=== PATIENT | male | born 1950 | race Caucasian/White ===

== ENCOUNTER → 2018-08-03 | Outpatient (CLI) | payer MEDICARE, OTHER | END | disposition home or self-care (01) | LOC: RADPV 11:00 | PROVIDERS: ATTEND Internal Medicine Cardiovascular Disease | DX: I50.1 Left ventricular failure, unspecified (principal); I51.7 Cardiomegaly | CPT/HCPCS: 93306 ==

== ENCOUNTER 2021-09-19 14:22 | Emergency (ER) | payer MEDICARE, MEDICAID ==
[~2021-09-19] VITALS: Ht 165.1 cm; Wt 77.0 kg
[2021-09-19 14:34] VITALS: BP 123/65
[2021-09-19 15:12] LABS: BASOPHILS % (AUTO) 0.4 % (0.0-2.0); EOSINOPHILS % (AUTO) 7.6 % (1.0-6.0); HEMATOCRIT 37.7 % (41-53); HEMOGLOBIN 13.1 g/dL (13.5-17.5); LYMPHOCYTES # (AUTO) 1.8 K/uL (1.0-4.8); LYMPHOCYTES % (AUTO) 17.3 % (22.0-44.0); MEAN CORPUSCULAR HEMOGLOBIN 31.7 pg (26.0-34.0); MEAN CORPUSCULAR HGB CONC 34.7 G/dL (31.0-37.0); MEAN CORPUSCULAR VOLUME 91 fL (80-100); MONOCYTES # (AUTO) 0.6 K/uL (0.1-1.0); MONOCYTES % (AUTO) 6.1 % (2.0-9.0); NEUTROPHILS # (AUTO) 7.3 K/uL (1.8-7.7); NEUTROPHILS % (AUTO) 68.6 % (40.0-70.0); PLATELET COUNT (AUTO) 312 K/uL (150-450); RED BLOOD CELL COUNT(AUTO) 4.12 MIL/uL (4.50-5.90); RED CELL DISTRIBUTION WIDTH 13.1 % (11.5-14.5)
[2021-09-19 15:22] LABS: ANION GAP 9 mmol/L (8-16); CALCIUM, TOTAL 9.2 mg/dL (8.8-10.5); CARBON DIOXIDE 30 mmol/L (22-29); CHLORIDE 102 mmol/L (98-107); CREATININE 0.89 mg/dL (0.60-1.30); GLUCOSE,RANDOM 146 mg/dL (70-110); POTASSIUM 3.6 mmol/L (3.5-5.1); SODIUM SERUM 141 mmol/L (136-145); UREA NITROGEN, BLOOD 17 mg/dL (7-18)
[2021-09-19 15:23] LABS: GLOMERULAR FILTR. RATE CALC > 60 mL/min (>60)
[2021-09-19 15:31] LABS: LACTIC ACID 3.3 mmol/L (0.4-2.0)
[2021-09-19 15:36] LABS: ALANINE AMINOTRANSFERASE 24 U/L (12-78); ALBUMIN 3.3 g/dL (3.4-5.0); ALKALINE PHOSPHATASE 98 U/L (46-116); ASPARTATE AMINOTRANSFERASE 21 U/L (15-37); BILIRUBIN,TOTAL 0.5 mg/dL (0.1-1.0); TOTAL PROTEIN, SERUM 6.8 g/dL (6.4-8.2)
[2021-09-19] MEDS ORDERED: PRED-554 PO (17:06)
[2021-09-19] MEDS: MethylPREDNISolone SOD SUCC 125 MG/2 ML VIAL IM ONE (17:29)
== END 2021-09-19 17:46 | disposition home or self-care (01) ==
LOC: EMS 14:22
DX: L51.1 Stevens-Johnson syndrome (principal); L51.9 Erythema multiforme, unspecified; L95.9 Vasculitis limited to the skin, unspecified; K14.0 Glossitis; E11.9 Type 2 diabetes mellitus without complications; I10 Essential (primary) hypertension; Z87.438 Personal history of other diseases of male genital organs; Z98.890 Other specified postprocedural states
CPT/HCPCS: 36415; 80053; 83605; 85025; 87040; 96372; 99283; J2930

== ENCOUNTER 2023-06-12 15:03 | Emergency (ER) | payer MEDICARE, MEDICAID ==
[~2023-06-12] VITALS: Ht 165.1 cm; Wt 77.3 kg
[~2023-06-12 15:03] MED LIST: PRED-554 PO
[2023-06-12 15:39] VITALS: TEMP 98.2
[2023-06-12] MEDS ORDERED: PERTUSS(ACELL),DIPH,TET VAC/PF 0.5 ML SYRINGE IM. ONE (21:30)
[2023-06-12] MEDS ORDERED: AMOX TR/POT CLAV 875 MG/125 MG TABLET PO ONE (21:30)
[2023-06-12] MEDS ORDERED: KETOROLAC TROMETHAMINE 30 MG/ML VIAL IM ONE (21:45)
[2023-06-12 22:29] VITALS: BP 136/77; PULSE 71; RESP 16
== END 2023-06-12 22:30 | disposition home or self-care (01) ==
LOC: EMS 15:12
DX: L03.031 Cellulitis of right toe (principal); E11.9 Type 2 diabetes mellitus without complications; Z98.890 Other specified postprocedural states
CPT/HCPCS: 99284; 82962; 73630; 90715; 90471; 96372; J1885